=== PATIENT | female | born 1965 | race American Indian/Alaskan Native ===

== ENCOUNTER 2021-03-15 19:11 | Emergency (ER) | payer MEDICARE, OTHER ==
[2021-03-15] MEDS ORDERED: cloNIDine 0.1 MG TAB PO ONE (19:27)
--- NOTE | 2021-03-15 20:11 | XRay Report ---
CHEST 2 VIEWS INDICATION / CLINICAL INFORMATION: Chest pain. COMPARISON: None available. FINDINGS: SUPPORT DEVICES: None. HEART / MEDIASTINUM: No significant abnormality. LUNGS / PLEURA: No significant pulmonary or pleural abnormality. No pneumothorax. ADDITIONAL FINDINGS: No significant additional findings. IMPRESSION: 1. No acute findings. Signer Name: Rodolfo Larios MD Signed: 03/15/2021 8:07 PM Workstation Name: [id number]
[2021-03-15 20:13] LABS: Hematocrit 45.3 % (30.3-42.9); Hemoglobin 14.2 gm/dl (10.1-14.3); Mean Corpuscular HGB Conc 31 % (30-34); Mean Corpuscular Volume 88 fl (79-97); Platelet Count 226 K/mm3 (140-440); Red Blood Count 5.15 M/mm3 (3.65-5.03)
[2021-03-15] MEDS ORDERED: ONDANSETRON 4 MG/2 ML INJ IV ONE (20:16)
--- NOTE | 2021-03-15 20:31 | Emergency Department Report ---
ED General Adult HPI - General Chief complaint: High BP Stated complaint: ELEVATED BLOOD PRESSURE Time Seen by Provider: 03/15/21 20:06 Source: patient Mode of arrival: Ambulatory Limitations: Other - History of Present Illness Initial comments: Patient is 56 years old female with history of hypertension on Toprol. Patient presented to the ER complaining of dizziness, nausea and vomiting and found to have a blood pressure of 204/98. Patient stated that she was fine until she finished eating her peanut butter sandwich for lunch when she started having her current symptoms. Patient denied any chest pain or shortness of breath. No abdominal pain. Patient also denied any diarrhea. No fever or chills. - Related Data Allergies Allergy/AdvReac Type Severity Reaction Status Date / Time Sulfa (Sulfonamide AdvReac Severe Vomiting Verified 03/15/21 20:11 Antibiotics) Penicillins AdvReac Mild Rash Verified 03/15/21 20:11 ED Review of Systems ROS: Stated complaint: ELEVATED BLOOD PRESSURE Other details as noted in HPI Comment: All other systems reviewed and negative Constitutional: denies: chills, fever Respiratory: denies: cough, shortness of breath, SOB with exertion Cardiovascular: denies: chest pain, palpitations Gastrointestinal: nausea, vomiting. denies: abdominal pain, diarrhea, constipation, hematemesis, melena, hematochezia Musculoskeletal: denies: back pain Neurological: denies: headache, weakness, numbness, paresthesias, confusion, abnormal gait ED Past Medical Hx - Past Medical History Previous Medical History?: Yes Hx Hypertension: Yes - Surgical History Past Surgical History?: Yes Additional Surgical History: Hysterectomy, thumb, ankle, Knee - Social History Smoking Status: Former Smoker Substance Use Type: Marijuana ED Physical Exam - General Limitations: Other General appearance: alert, in no apparent distress - Head Head exam: Present: atraumatic, normocephalic, normal inspection - Eye Eye exam: Present: normal appearance, PERRL - ENT ENT exam: Present: normal exam, normal orophraynx, mucous membranes moist - Neck Neck exam: Present: normal inspection, full ROM. Absent: tenderness, meningismus - Respiratory Respiratory exam: Present: normal lung sounds bilaterally - Cardiovascular Cardiovascular Exam: Present: regular rate, normal rhythm, normal heart sounds - GI/Abdominal GI/Abdominal exam: Present: soft, normal bowel sounds. Absent: distended, tenderness, guarding, rebound, rigid, mass, bruit, pulsatile mass, hernia - Extremities Exam Extremities exam: Present: normal inspection, full ROM, normal capillary refill. Absent: tenderness, pedal edema, joint swelling, calf tenderness - Back Exam Back exam: Present: normal inspection, full ROM. Absent: CVA tenderness (R), CVA tenderness (L) - Neurological Exam Neurological exam: Present: alert, oriented X3, CN II-XII intact - Psychiatric Psychiatric exam: Present: normal mood - Skin Skin exam: Present: warm, intact, normal color ED Course Vital Signs 03/15/21 03/15/21 03/15/21 19:24 19:41 20:10 Temperature 97.7 F 97.6 F Pulse Rate 75 75 80 Respiratory 18 19 Rate Blood Pressure 198/91 198/91 Blood Pressure 200/97 [Left] O2 Sat by Pulse 96 98 Oximetry 03/15/21 03/15/21 03/15/21 20:24 20:30 21:01 Temperature Pulse Rate 82 70 68 Respiratory 19 Rate Blood Pressure 204/90 149/77 149/75 Blood Pressure [Left] O2 Sat by Pulse 98 97 Oximetry 03/15/21 03/15/21 03/15/21 21:08 21:15 21:30 Temperature Pulse Rate 73 72 Respiratory 18 15 13 Rate Blood Pressure 153/69 154/71 Blood Pressure [Left] O2 Sat by Pulse 100 98 Oximetry 03/15/21 03/15/21 03/15/21 21:38 21:45 22:15 Temperature Pulse Rate 68 59 L Respiratory 18 11 L 18 Rate Blood Pressure 145/69 159/90 Blood Pressure [Left] O2 Sat by Pulse 96 97 Oximetry 03/15/21 03/15/21 03/15/21 22:30 22:45 23:00 Temperature Pulse Rate 62 63 72 Respiratory 15 16 16 Rate Blood Pressure 143/79 139/83 167/86 Blood Pressure [Left] O2 Sat by Pulse 97 96 96 Oximetry 03/15/21 03/15/21 03/15/21 23:15 23:31 23:45 Temperature Pulse Rate 60 65 69 Respiratory 16 14 17 Rate Blood Pressure 152/84 143/80 142/66 Blood Pressure [Left] O2 Sat by Pulse 96 97 95 Oximetry 03/16/21 03/16/21 03/16/21 00:01 00:07 00:15 Temperature Pulse Rate 65 63 63 Respiratory 13 17 15 Rate Blood Pressure 138/73 138/73 136/78 Blood Pressure [Left] O2 Sat by Pulse 98 98 98 Oximetry 03/16/21 00:31 Temperature Pulse Rate 70 Respiratory 19 Rate Blood Pressure 139/72 Blood Pressure [Left] O2 Sat by Pulse 97 Oximetry ED Medical Decision Making - Lab Data Result diagrams: 03/15/21 19:37 03/15/21 22:55 - EKG Data -: EKG Interpreted by Me EKG shows normal: sinus rhythm Rate: normal - EKG Data Interpretation: no acute changes - Radiology Data Radiology results: report reviewed - Medical Decision Making Patient is 56 years old female with history of hypertension on Toprol. Patient presented to the ER complaining of dizziness, nausea and vomiting and found to have a blood pressure of 204/98. Patient stated that she was fine until she finished eating her peanut butter sandwich for lunch when she started having her current symptoms. Patient denied any chest pain or shortness of breath. No abdominal pain. Patient also denied any diarrhea. No fever or chills. Patient received labetalol 10 mg IV and he stated that she is feeling much better. Labs reviewed and is unremarkable except for potassium of 2.9 corrected with potassium chloride IV. Repeated potassium is 4. CT brain is unremarkable. Patient strongly advised to follow-up with her primary care physician in the next 2 to 3 days and to return to the ER if she develop any new symptoms. Critical Care Time: Yes Critical care time in (mins) excluding proc time.: 30 Critical care attestation.: If time is entered above; I have spent that time in minutes in the direct care of this critically ill patient, excluding procedure time. ED Disposition Clinical Impression: Acute hypokalemia, Dizziness, Malignant hypertension, Acute nausea with nonbilious vomiting Disposition: DC-01 TO HOME OR SELFCARE Is pt being admited?: No Condition: Stable Instructions: Hypertension (ED), Nausea, Adult, Hypokalemia, Dizziness, [id number] Referrals: PRIMARY CARE, [Primary Care Provider] - 3-5 Days
[2021-03-15 20:34] LABS: Alanine Aminotransferase 24 units/L (7-56); Albumin 4.4 g/dL (3.9-5); Blood Urea Nitrogen 9 mg/dL (7-17); Calcium 8.7 mg/dL (8.4-10.2); Hemolysis Index 12
[2021-03-15 20:36] LABS: BUN/Creatinine Ratio 13
[2021-03-15] MEDS: POTASSIUM CHLORIDE 10 MEQ 10 MEQ/100 ML BAG IV SCH ×2 (20:59→22:00)
[2021-03-15] MEDS ORDERED: MORPHINE 4 MG/1 ML INJ IV ONE (21:03)
[2021-03-15 21:06] LABS: Total Cells Counted 100
[2021-03-15 21:08] LABS: RBC Morphology Normal
[2021-03-15] MEDS ORDERED: SODIUM CHLORIDE 0.9% 500 ML 500 ML IV SCH ×2 (21:11→22:00)
--- NOTE | 2021-03-15 21:18 | Cat Scan Report ---
CT head/brain wo con INDICATION: Dizziness, high blood pressure. TECHNIQUE: Routine CT head without contrast. All CT scans at this location are performed using CT dos e reduction for ALARA by means of automated exposure control. COMPARISON: None. FINDINGS: BRAIN / INTRACRANIAL CONTENTS: No acute hemorrhage, mass effect, midline shift, or hydrocephalus. No appreciable acute large territorial or lacunar infarct. No chronic infarct or focal atrophy. Normal b rain volume and ventricular/sulcal size for age. ORBITS: No significant abnormality of visualized orbits. SINUSES / MASTOIDS: No significant abnormality of visualized sinuses and mastoid air cells. ADDITIONAL FINDINGS: None. IMPRESSION: 1. No acute intracranial abnormality. Signer Name: Rodolfo Larios MD Signed: 03/15/2021 9:14 PM Workstation Name: [id number]
[2021-03-16] MEDS ORDERED: MECLIZINE 25 MG TAB PO ONE (00:52)
[2021-03-16 01:58] VITALS: BP 158/87
--- NOTE | 2021-03-17 11:12 | Electrocardiograph Report ---
[facility] Test Date: 2021-03-15 Test Time: 19:33:58 Pat Name: AJMAL BURGOS Department: Room: Gender: F Store Receiving Clerk: ARIN : 1965 Requested By: ALICIA HYMAN Order Number: [id number] Reading MD: Romeo Ceron Measurements Intervals [place] Rate: 60 P: 54 [place]: 141 QRS: 11 QRSD: 89 T: 80 QT: 368 QTc: 369 Interpretive Statements Sinus rhythm Probable left atrial enlargement Nonspecific T abnormalities, lateral leads No previous ECG available for comparison Electronically Signed On 03-17-2021 11:12:03 EDT by Romeo Ceron
--- NOTE | 2021-03-17 11:13 | Electrocardiograph Report ---
[facility] Test Date: 2021-03-15 Test Time: 23:29:20 Pat Name: JAMAL BURGOS Department: Room: Gender: F Insurance Underwriting Assistant: FLASH : 1965 Requested By: ALICIA HYMAN Order Number: [id number] Reading MD: Romeo Ceron Measurements Intervals [place] Rate: 59 P: 59 MS: 147 QRS: 30 QRSD: 80 T: 51 QT: 448 QTc: 444 Interpretive Statements Sinus bradycardia Probable left atrial enlargement Compared to ECG 03/15/2021 19:33:58 Sinus rhythm no longer present T-wave abnormality no longer present Electronically Signed On 03-17-2021 11:12:35 EDT by Romeo Ceron
== END 2021-03-16 01:05 | disposition home or self-care (01) ==
LOC: ED 19:11
DX: E87.6 Hypokalemia (principal); R42 Dizziness and giddiness; R11.2 Nausea with vomiting, unspecified; I10 Essential (primary) hypertension; F12.10 Cannabis abuse, uncomplicated; Z90.710 Acquired absence of both cervix and uterus; Z98.890 Other specified postprocedural states; Z87.891 Personal history of nicotine dependence; Z88.0 Allergy status to penicillin; Z88.2 Allergy status to sulfonamides
CPT/HCPCS: 36415; 70450; 71046; 80053; 83880; 84132; 84484; 85007; 85025; 93005; 96365; 96366; 96375; 99285; J2270; J2405; J3480; J7040